=== PATIENT | female | born 1960 | race African-American/Black ===

== ENCOUNTER 2017-07-05 09:00 | Emergency (ER) | payer MEDICARE ==
[2017-07-05] MEDS ORDERED: PROMETHAZINE 12.5 MG in IV NORMAL SALINE 50ML 50 ML IV PRN (09:30)
[2017-07-05] MEDS ORDERED: DICYCLOMINE 20 MG/2 ML AMPUL. IM ONE (09:30)
[2017-07-05] MEDS ORDERED: ONDANSETRON PF 4 MG/2 ML VIAL. IV ONE (09:30)
[2017-07-05] MEDS ORDERED: MORPHINE SULFATE 4 MG/ML DISP.SYRIN. IV/SQ PRN (09:30)
[2017-07-05] MEDS ORDERED: HYDR-971 PO (09:50)
[2017-07-05] MEDS ORDERED: DOXY100C14 PO (09:50)
[2017-07-05] MEDS ORDERED: NAPR-677 PO (09:50)
[2017-07-05] MEDS ORDERED: BENZ100C PO (09:51)
--- NOTE | 2017-07-05 09:54 | ED.ADGEN ---
Past History Past Medical History: CAD, Hypertension, Other Past Surgical History: , Hysterectomy, Oophorectomy, Other Alcohol Use: None Drug Use: None Adult General HPI HPI Patient is a 57 year old female who presents with facial pain and erythema that began one week ago. The patient reports she's also having tenderness to the left aspect of her nose and extending over her left maxillary sinus. The patient reports nasal congestion that was unrelieved with [id number] Flonase. The patient reports clear rhinorrhea. The patient also complains of a congested cough. The patient denies fevers or chills. The patient reports that the soft tissues of the nose and over her maxillary sinus are also tender. The patient reports that she recently had a cardiac catheter at [facility] 2 days ago. The patient reports that she is awaiting a femoropopliteal bypass to be done at [facility]. Review of Systems Review of Systems Constitutional: Denies fever or chills [] Eyes: Denies change in visual acuity, redness, or eye pain [] HENT: The patient reports nasal drainage that is clear but denies a sore throat] Respiratory: The patient reports a congested cough but denies shortness of air.] Cardiovascular: No additional information not addressed in HPI [] GI: Denies abdominal pain, nausea, vomiting, bloody stools or diarrhea [] : Denies dysuria or hematuria [] Musculoskeletal: Denies back pain or joint pain [] Integument: Denies rash or skin lesions [] Neurologic: Denies headache, focal weakness or sensory changes [] Endocrine: Denies polyuria or polydipsia [] Current Medications Current Medications Current Medications Medications (Trade) Dose Ordered Sig/Jaelyn Start Time Stop Time Status Last Admin Dose Admin Dicyclomine HCl (Bentyl) 20 mg 1X ONCE 07/05/17 09:30 07/05/17 09:30 DC Morphine Sulfate (Morphine 4mg Syringe) 4 mg PRN Q15MIN PRN 07/05/17 09:30 07/05/17 09:30 DC Ondansetron HCl (Zofran) 8 mg 1X ONCE 07/05/17 09:30 07/05/17 09:30 DC Promethazine HCl 12.5 mg/Sodium Chloride 50.5 ml @ 101 mls/hr PRN Q6HRS PRN 07/05/17 09:30 07/05/17 09:30 DC Sodium Chloride 1,000 ml @ 1,000 mls/hr 1X ONCE 07/05/17 10:15 07/05/17 10:15 DC Allergies Allergies Allergies Coded Allergies Type Severity Reaction Last Updated Verified Sulfa (Sulfonamide Antibiotics) Allergy Unknown Nausea and Vomiting 07/05/17 Yes acetaminophen Allergy Unknown Nausea and Vomiting 07/05/17 Yes butalbital Allergy Unknown Nausea and Vomiting 07/05/17 Yes caffeine Allergy Unknown Nausea and Vomiting 07/05/17 Yes tramadol Allergy Unknown Nausea and Vomiting 07/05/17 Yes Physical Exam Physical Exam Constitutional: Well developed, well nourished, no acute distress, non-toxic appearance. [] HENT: Normocephalic, atraumatic, bilateral external ears normal, oropharynx moist, no oral exudates, nose normal. Nasal mucosa with clear drainage present, mild nasal mucosal edema, left Neer with tenderness to palpation as well as tenderness over left maxillary sinus and the soft tissues over the maxillary sinus, there is very minimal amount of erythema to the soft tissues in this area. The patient has a scar from an old injury that appears to have been sutured approximately 1/2 cm long on the left side of her nose.[] Eyes: PERRLA, EOMI, conjunctiva normal, no discharge. [] Neck: Normal range of motion, no tenderness, supple, no stridor. [] Cardiovascular:Heart rate regular rhythm, no murmur [] Lungs & Thorax: Bilateral breath sounds clear to auscultation [] Abdomen: Bowel sounds normal, soft, no tenderness, no masses, no pulsatile masses. [] Skin: Warm, dry, no erythema, no rash. [] Back: No tenderness, no CVA tenderness. [] Extremities: No tenderness, no cyanosis, no clubbing, ROM intact, no edema. [] Neurologic: Alert and oriented X 3, normal motor function, normal sensory function, no focal deficits noted. [] Psychologic: Affect normal, judgement normal, mood normal. [] Current Patient Data Vital Signs Vital Signs Date Time Temp Pulse Resp B/P (MAP) Pulse Ox O2 Delivery O2 Flow Rate FiO2 07/05/17 10:00 70 18 150/77 (101) 98 Room Air 07/05/17 09:00 97.7 EKG EKG [] Radiology/Procedures Radiology/Procedures [] Course & Med Decision Making Course & Med Decision Making Pertinent Labs and Imaging studies reviewed. (See chart for details) [] Final Impression Final Impression Facial cellulitis very early Upper respiratory infection[] Problems: Dragon Disclaimer Dragon Disclaimer This electronic medical record was generated, in whole or in part, using a voice recognition dictation system. Departure Disposition: HOME, SELF-CARE Condition: GOOD Patient Instructions: Cellulitis Referrals: ANA DE LEON DO Additional Instructions: Please return to the emergency department for a recheck in 24 hours, or follow up with the primary care physician you have been referred to. Prescriptions doxycyline, ashley snyder HILARY A MD Jul 05, 2017 09:54
[2017-07-05 10:00] VITALS: BP 150/77
[2017-07-05] MEDS ORDERED: IV NORMAL SALINE 1,000ML 1,000 ML IV ONE ×2 (10:15)
[2017-07-05] MEDS ORDERED: IV NORMAL SALINE 500ML 1,000 ML IV ONE (10:15)
== END 2017-07-05 10:05 | disposition home or self-care (01) ==
LOC: ER 09:00
DX: L03.211 Cellulitis of face (principal); J06.9 Acute upper respiratory infection, unspecified; I25.10 Atherosclerotic heart disease of native coronary artery without angina pectoris; I10 Essential (primary) hypertension; Z88.2 Allergy status to sulfonamides; Z88.6 Allergy status to analgesic agent; Z88.8 Allergy status to other drugs, medicaments and biological substances
CPT/HCPCS: 99283; 99285-25

== ENCOUNTER 2017-08-24 11:36 | Emergency (ER) | payer MEDICARE ==
[~2017-08-24] VITALS: Ht 157.5 cm; Wt 50.8 kg
[~2017-08-24 11:36] MED LIST: BENZ100C PO; DOXY100C14 PO; HYDR-971 PO; NAPR-677 PO
[2017-08-24 12:29] LABS: BILIRUBIN,URINE NEG (NEG); CLARITY,URINE CLEAR; COLOR,URINE YELLOW; GLUCOSE,URINE NEG (NEG)
[2017-08-24 12:30] LABS: BACTERIA,URINE 0 /HPF (0-FEW); NITRITE,URINE NEG (NEG); RBC,URINE 0 /HPF (0-2); UROBILINOGEN,URINE 0.2 mg/dL (0.2 mg/dL); WBC,URINE 0 /HPF (0-4)
[2017-08-24] MEDS ORDERED: IBUP400T18 PO (12:39)
--- NOTE | 2017-08-24 12:40 | PHYS DOC ---
Past History Past Medical History: CAD, Hypertension, Other Past Surgical History: , Hysterectomy, Oophorectomy, Other Alcohol Use: None Drug Use: None Adult General Chief Complaint Chief Complaint: ABDOMINAL PAIN HPI HPI 57-year-old female presenting to the emergency department today with right lower quadrant abdominal pain. She describes the pain as sharp mild intermittent nonradiating without alleviating factors. She has had a total hysterectomy including her ovaries. She denies fevers chills nausea or vomiting. Review of systems is negative for chest pain shortness of breath fevers chills. Diarrhea constipation. She denies blood in her stools. All other review of systems is negative unless otherwise noted in history of present illness. ED course: 57-year-old female presenting with right lower quadrant abdominal pain. Afebrile with normal heart rate. IV established. Fluids given. Blood work obtained along with CT the abdomen pelvis. On reexamination, the patient's abdomen is nontender to palpation. Negative McBurney's point. Negative Russo sign. The patient was then discharged home in stable condition to follow up with their primary care physician over the next 2-3 days. They were to return if their symptoms worsened or if they were concerned for any reason. Face-to- face discharge instructions and return precautions were given. Patient's questions were answered to their satisfaction. Patient is comfortable plan. Review of Systems Review of Systems SEE ABOVE. Allergies Allergies Allergies Coded Allergies Type Severity Reaction Last Updated Verified Sulfa (Sulfonamide Antibiotics) Allergy Unknown Nausea and Vomiting 07/05/17 Yes acetaminophen Allergy Unknown Nausea and Vomiting 07/05/17 Yes butalbital Allergy Unknown Nausea and Vomiting 07/05/17 Yes caffeine Allergy Unknown Nausea and Vomiting 07/05/17 Yes tramadol Allergy Unknown Nausea and Vomiting 07/05/17 Yes Physical Exam Physical Exam SEE ABOVE Constitutional: Well developed, well nourished, no acute distress, non-toxic appearance. HENT: Normocephalic, atraumatic, bilateral external ears normal, oropharynx moist, no oral exudates, nose normal. [] Eyes: PERRLA, EOMI, conjunctiva normal, no discharge. Neck: Normal range of motion, no tenderness, supple, no stridor. [] Cardiovascular:Heart rate regular rhythm, no murmur Lungs & Thorax: Bilateral breath sounds clear to auscultation [] Abdomen: Soft nontender abdomen without rebound tenderness or guarding present. Negative McBurneys point. Negative Russo sign. No ecchymosis present. Skin: Warm, dry, no erythema, no rash. [] Back: No tenderness, no CVA tenderness. Extremities: No tenderness, no cyanosis, no clubbing, ROM intact, no edema. [] Neurologic: Alert and oriented X 3, normal motor function, normal sensory function, no focal deficits noted. [] Psychologic: Affect normal, judgement normal, mood normal. [] Current Patient Data Lab Results Laboratory Tests Test 08/24/17 12:10 Urine Collection Type Unknown Urine Color Yellow Urine Clarity Clear Urine pH 6.5 Urine Specific [place] <=1.005 Urine Protein Neg (NEG-TRACE) Urine Glucose (UA) Neg mg/dL (NEG) Urine Ketones (Stick) Neg mg/dL (NEG) Urine Blood Neg (NEG) Urine Nitrite Neg (NEG) Urine Bilirubin Neg (NEG) Urine Urobilinogen Dipstick 0.2 mg/dL (0.2 mg/dL) Urine Leukocyte Esterase Neg (NEG) Urine RBC 0 /HPF (0-2) Urine WBC 0 /HPF (0-4) Urine Squamous Epithelial Cells None /LPF Urine Bacteria 0 /HPF (0-FEW) EKG EKG [] Radiology/Procedures Radiology/Procedures [] Course & Med Decision Making Course & Med Decision Making Pertinent Labs and Imaging studies reviewed. (See chart for details) [] Dragon Disclaimer Dragon Disclaimer This electronic medical record was generated, in whole or in part, using a voice recognition dictation system. Departure Departure: Impression: Primary Impression: RLQ abdominal pain Disposition: HOME, SELF-CARE Condition: STABLE Referrals: PCP,NO (PCP) Patient Instructions: Abdominal Pain Additional Instructions: Thank you for allowing us to participate in your care today. Followup with your primary care physician in 3 days if your symptoms do not improve. Call your Primary Doctor tomorrow and inform them of your visit today. If you do not have a primary care provider you can ask for a list of our primary care providers. Return to the emergency department you have any new or concerning findings. This should be evaluated by the primary care physician and any necessary consulting services for continued management within a few days after discharge. Return to emergency room if you have any new or concerning symptoms including but not limited to fever, chills, nausea, vomiting, intractable pain, any new rashes, chest pain, shortness of air, uncontrolled bleeding, difficulty breathing, and/or vision loss. Scripts Ibuprofen (IBUPROFEN) 400 Mg Tablet 1 TAB PO PRN Q8HRS Y for PAIN, #20 TAB Prov: AMY PATTERSON MD 08/24/17 AMY PATTERSON MD Aug 24, 2017 12:40
[2017-08-24 12:42] LABS: BASO # 0.1 x10^3/uL (0.0-0.2); BASO % 1 % (0-3); EOS # 0.1 x10^3/uL (0.0-0.7); EOS % 1 % (0-3); HEMATOCRIT 37.8 % (36.0-47.0); HEMOGLOBIN 13.2 g/dL (12.0-15.5); LYMPH # 1.9 x10^3/uL (1.0-4.8); LYMPH % 33 % (24-48); MEAN CORPUSCULAR HEMOGLOBIN 33 pg (25-35); MEAN CORPUSCULAR HGB CONC 35 g/dL (31-37); MEAN CORPUSCULAR VOLUME 94 fL (79-100); MONO # 0.4 x10^3/uL (0.0-1.1); MONO % 7 % (0-9); NEUT # 3.2 x10^3uL (1.8-7.7); NEUT % 58 % (31-73); PLATELET COUNT 225 x10^3/uL (140-400); RED BLOOD COUNT 4.03 x10^6/uL (3.50-5.40); RED CELL DISTRIBUTION WIDTH 13.7 % (11.5-14.5); WHITE BLOOD COUNT 5.6 x10^3/uL (4.0-11.0)
[2017-08-24 12:55] LABS: CREATININE 0.9 mg/dL (0.6-1.0); DIRECT BILIRUBIN 0.1 mg/dL (0.0-0.2); GFR 78.4; POTASSIUM 4.5 mmol/L (3.5-5.1); TOTAL BILIRUBIN 0.5 mg/dL (0.2-1.0); TOTAL PROTEIN 8.2 g/dL (6.4-8.2)
[2017-08-24] MEDS ORDERED: IOHEXOL 300 MG/ML 75 ML VIAL. IV ONE (13:00)
--- NOTE | 2017-08-24 13:17 | RAD ---
EXAM: CT abdomen/pelvis with contrast. HISTORY: Right lower quadrant pain. TECHNIQUE: Computed tomography of the abdomen and pelvis was performed after the intravenous administration of 75 mL Omnipaque 300. COMPARISON: None. FINDINGS: Lung windows through the visualized portions of the bases reveal no abnormality. Bone windows reveal no suspicious lesions. A 6 mm hypoattenuating focus in hepatic segment 8 is likely a benign cyst or hemangioma in the absence of known malignancy. The pancreas, adrenal glands, gallbladder, spleen and kidneys are unremarkable. The appendix is not inflamed. There is no obstruction. There is stool throughout the colon. The uterus is surgically absent. There are diffuse atherosclerotic calcifications. IMPRESSION: 1. No cause for acute pain is identified. Correlate for mild constipation. *One or more of the following individualized dose reduction techniques were utilized for this examination: 1. Automated exposure control. 2. Adjustment of the mA and/or kV according to patient size. 3. Use of iterative reconstruction technique.
[2017-08-24 13:30] VITALS: BP 157/63
== END 2017-08-24 14:09 | disposition home or self-care (01) ==
LOC: ER 11:36
DX: R10.31 Right lower quadrant pain (principal); I10 Essential (primary) hypertension; I25.10 Atherosclerotic heart disease of native coronary artery without angina pectoris; Z88.2 Allergy status to sulfonamides; Z88.6 Allergy status to analgesic agent; Z88.8 Allergy status to other drugs, medicaments and biological substances
CPT/HCPCS: 36415; 74177; 80048; 80076; 81001; 83690; 85025; 99285; Q9967

== ENCOUNTER → 2018-03-13 | Outpatient (CLI) | payer MEDICARE ==
[~2018-03-13] MED LIST changes: +IBUP400T18 PO
--- NOTE | 2018-03-22 11:43 | RAD ---
DATE: 03/13/2018 EXAM: MAMMO JOSE SCREENING BILATERAL HISTORY: Routine screening COMPARISON: 10/24/2016 This study was interpreted with the benefit of Computerized Aided Detection (CAD). The breast parenchyma is heterogeneously dense, which could reduce sensitivity of mammography. Breast parenchyma level C. FINDINGS: 2-D and 3-D tomosynthesis imaging was performed in CC and MLO projections. The fibroglandular tissues are heterogeneously dense in a somewhat nodular pattern. No spiculated mass or architectural distortion is seen. Benign type calcifications are evident. No suspicious microcalcifications have developed. IMPRESSION: There is no mammographic evidence of malignancy in either breast. BI-RADS CATEGORY: 2 BENIGN FINDING(S) RECOMMENDED FOLLOW-UP: 12M 12 MONTH FOLLOW-UP PQRS compliance statement: Patient information was entered into a reminder system with a target due date for the next mammogram. Mammography is a sensitive method for finding small breast cancers, but it does not detect them all and is not a substitute for careful clinical examination. A negative mammogram does not negate a clinically suspicious finding and should not result in delay in biopsying a clinically suspicious abnormality. "Our facility is accredited by the [employer] Mammography Program."
== END | disposition home or self-care (01) ==
LOC: MAMMO 11:02
PROVIDERS: ATTEND Family Medicine
DX: Z12.31 Encounter for screening mammogram for malignant neoplasm of breast (principal)
CPT/HCPCS: 77063; 77067

== ENCOUNTER → 2018-03-19 | Outpatient (CLI) | payer MEDICARE ==
--- NOTE | 2018-03-19 14:58 | CARD ---
MR#: [id number] Date of Study: 03/19/2018 Ordering Physician: TAYE ESPINO, Referring Physician: TAYE ESPINO, Tech: Belen Lomeli CHANTAL APPROVED REPORT EXAM: Two-dimensional and M-mode echocardiogram with Doppler and color Doppler. Other Information Quality : Good INDICATION Hypertension/HCVD 2D DIMENSIONS RVDd2.2 (2.9-3.5cm)Left Atrium(2D)2.9 (1.6-4.0cm) IVSd1.1 (0.7-1.1cm)Aortic Root(2D)2.5 (2.0-3.7cm) LVDd4.2 (3.9-5.9cm)LVOT Diameter1.8 (1.8-2.4cm) PWd0.9 (0.7-1.1cm)LVDs2.1 (2.5-4.0cm) FS (%) 30.6 %SV64.1 ml LVEF(%)60.0 (>50%) Aortic Valve AoV Peak Osmin.150.7cm/sAoV VTI28.9cm AO Peak GR.9.1mmHgLVOT Peak Osmin.123.9cm/s LVOT VTI 28.29cmAO Mean GR.4mmHg IGNACIO (VMAX)2.66bz6HVI (VTI)2.62cm2 AI P 1/2 Juwo881lv Mitral Valve MV E Jhqfgpdc09.8cm/sMV DECEL [id number] MV A Xiatbbjw10.4cm/sE/A Ratio1.3 Tricuspid Valve TR P. Ntpgsdhp336bf/sRAP AXYDPUFG0jzHz TR Peak Gr.37meObNDHD02viTx Pulmonary Vein S1 Scsxhuhp54.1cm/sD2 Cdviwznr28.9cm/s LEFT VENTRICLE The left ventricle is normal size. There is normal left ventricular wall thickness. The left ventricu lar systolic function is normal. The Ejection Fraction is 55-60%. There is normal LV segmental wall m otion. RIGHT VENTRICLE The right ventricle is normal size. The right ventricular systolic function is normal. ATRIA The left atrium size is normal. The right atrium size is normal. The interatrial septum is intact wit h no evidence for an atrial septal defect or patent foramen ovale as noted on 2-D or Doppler imaging. AORTIC VALVE The aortic valve is calcified but opens well. Doppler and Color Flow revealed mild to moderate aortic regurgitation. There is no significant aortic valvular stenosis. MITRAL VALVE The mitral valve is normal in structure and function. There is no evidence of mitral valve prolapse. There is no mitral valve stenosis. Doppler and Color-flow revealed mild mitral regurgitation. TRICUSPID VALVE The tricuspid valve is normal in structure and function. Doppler and Color Flow revealed trace tricus pid regurgitation. The PA pressure was estimated at 18 mmHg. There is no tricuspid valve stenosis. PULMONIC VALVE The pulmonary valve is normal in structure and function. Doppler and Color Flow revealed mild to mode rate pulmonic valvular regurgitation. There is no pulmonic valvular stenosis. GREAT VESSELS The aortic root is normal in size. The ascending aorta is normal in size. The IVC is normal in size a nd collapses >50% with inspiration. PERICARDIAL EFFUSION There is no evidence of significant pericardial effusion. Critical Notification Critical Value: No <Conclusion> The left ventricular systolic function is normal. The Ejection Fraction is 55-60%. There is normal LV segmental wall motion. Mild to moderate aortic regurgitation. Mild mitral regurgitation. Trace tricuspid regurgitation. The PA pressure was estimated at 18 mmHg. There is no evidence of significant pericardial effusion. Signed by : Elmer Hammer, Electronically Approved : 03/19/2018 14:56:55
== END | disposition home or self-care (01) ==
LOC: ECHO 13:55
PROVIDERS: ATTEND Internal Medicine Cardiovascular Disease
DX: I10 Essential (primary) hypertension (principal); I08.0 Rheumatic disorders of both mitral and aortic valves
CPT/HCPCS: 93306

== ENCOUNTER → 2018-06-21 | Outpatient (CLI) | payer MEDICARE ==
[~2018-06-21] MED LIST changes: +IOHEXOL 240 MG/ML 50ML VIAL. ONE
[2018-06-21] MEDS: IOHEXOL 300 MG/ML 75 ML VIAL. IV ONE (10:02)
--- NOTE | 2018-06-21 12:47 | RAD ---
EXAM: Abdomen and pelvis CT with intravenous contrast. HISTORY: Right lower quadrant pain. TECHNIQUE: Computed tomographic images of the abdomen and pelvis were obtained following the administration of 75 cc Omnipaque 300 intravenous contrast. Multiplanar reformatting was performed. *One or more of the following individualized dose reduction techniques were utilized for this examination: 1. Automated exposure control. 2. Adjustment of the mA and/or kV according to patient size. 3. Use of iterative reconstruction technique. COMPARISON: 08/24/2017. FINDINGS: Evaluation of the lower thorax is unremarkable. There hypodense lesions within the liver measuring 7 mm within the lateral right hepatic lobe and 3 mm within the left hepatic lobe. These are too small to characterize. There is slight fatty infiltration of the liver along the falciform ligament. The gallbladder, pancreas, spleen, adrenal glands and kidneys are unremarkable. There is no appendicitis. There is no bowel obstruction. There is moderate colonic stool. The bladder is unremarkable. The uterus is surgically absent. There is no lymphadenopathy. There is calcified atherosclerotic plaque involving the aorta and main abdominal aortic branch vessel origins. This results in suspected stenosis primarily at the origins of the renal arteries. There is grade 1 anterolisthesis of L5 on S1. No suspicious osseous lesion is seen. IMPRESSION: 1. No acute abdominal or pelvic finding. Specifically, there is no evidence of appendicitis. 2. Stable small hypodense lesions within the liver. In the absence of known malignancy, these are likely cysts or hemangiomas. Electronically signed by: Neris Tolliver MD (06/21/2018 12:43 PM) [id number]
== END | disposition home or self-care (01) ==
LOC: CT 08:10
PROVIDERS: ATTEND Family Medicine
DX: K76.89 Other specified diseases of liver (principal); I70.0 Atherosclerosis of aorta; M43.17 Spondylolisthesis, lumbosacral region; I25.10 Atherosclerotic heart disease of native coronary artery without angina pectoris; I10 Essential (primary) hypertension; Z88.2 Allergy status to sulfonamides; Z88.6 Allergy status to analgesic agent; Z88.8 Allergy status to other drugs, medicaments and biological substances
CPT/HCPCS: 74177; Q9966; Q9967

== ENCOUNTER → 2018-08-13 | Day surgery (SDC) | payer MEDICARE ==
[~2018-08-13] MED LIST changes: +ALBUTEROL SULFATE 2.5 MG/3 ML NEBU. NEB PRN; +ASPI325T8 PO; +ATROPINE 0.5 MG/5 ML DISP.SYRIN. IV PRN; -IOHEXOL 240 MG/ML 50ML VIAL. ONE; +IV RINGERS SOLUTION,LACTATED 1,000 ML IV SCH; +LIDOCAINE 2% PF Vial for OR 5 ML VIAL. ONE; +LIPITOR80 MG PO; +LISI1TAB3 PO; +NALOXONE 0.4 MG/ML VIAL. IV PRN; +NAPR-683 PO; +ONDANSETRON PF 4 MG/2 ML VIAL. IV PRN; +PHENYLEPHRINE 10 MG/ML VIAL. IV ONE; +POTA10TA10 PO; +PROPOFOL 40 ML IV ONE
[2018-08-13 09:00] VITALS: BP 144/75
== END | disposition home or self-care (01) ==
LOC: SURG 06:58
PROVIDERS: ATTEND Internal Medicine Gastroenterology
DX: R10.31 Right lower quadrant pain (principal); K59.00 Constipation, unspecified; F41.9 Anxiety disorder, unspecified; E78.5 Hyperlipidemia, unspecified; I11.9 Hypertensive heart disease without heart failure; Z90.710 Acquired absence of both cervix and uterus; Z95.5 Presence of coronary angioplasty implant and graft; Z98.890 Other specified postprocedural states; Z82.49 Family history of ischemic heart disease and other diseases of the circulatory system; F17.210 Nicotine dependence, cigarettes, uncomplicated; Z88.2 Allergy status to sulfonamides; Z88.6 Allergy status to analgesic agent; Z88.8 Allergy status to other drugs, medicaments and biological substances; Z79.899 Other long term (current) drug therapy; Z79.82 Long term (current) use of aspirin
CPT/HCPCS: 45378; J2704; J7120; J2001

== ENCOUNTER 2018-11-21 08:55 | Emergency (ER) | payer MEDICARE ==
[~2018-11-21] VITALS: Ht 157.5 cm; Wt 55.6 kg
[~2018-11-21 08:55] MED LIST changes: -ALBUTEROL SULFATE 2.5 MG/3 ML NEBU. NEB PRN; -ATROPINE 0.5 MG/5 ML DISP.SYRIN. IV PRN; +HYDR-3165 PO; -HYDR-971 PO; -IV RINGERS SOLUTION,LACTATED 1,000 ML IV SCH; -LIDOCAINE 2% PF Vial for OR 5 ML VIAL. ONE; -NALOXONE 0.4 MG/ML VIAL. IV PRN; -ONDANSETRON PF 4 MG/2 ML VIAL. IV PRN; -PHENYLEPHRINE 10 MG/ML VIAL. IV ONE; -PROPOFOL 40 ML IV ONE
[2018-11-21 09:05] VITALS: BP 187/75
[2018-11-21] MEDS ORDERED: KETOROLAC 15 MG/ML VIAL. IM ONE (09:15)
--- NOTE | 2018-11-21 09:35 | PHYS DOC ---
Past History Past Medical History: CAD, Hypertension, Other Past Surgical History: , Hysterectomy, Oophorectomy, Other Alcohol Use: None Drug Use: None Adult General Chief Complaint Chief Complaint: SHOULDER INJURY HPI HPI Patient is a 58-year-old female who presents with right shoulder pain. This started 3 weeks ago after a fall, slipping on ice and snow. This became much worse 2 days ago when she slipped again landing on that same right shoulder. Patient is right-hand dominant. Increased pain with any movement. No numbness or tingling. No paresthesias. No chest pain or palpitations nor worsening with exertion. Patient has taken no home pain medication. Reports the pain is severe. [] Review of Systems Review of Systems Constitutional: Denies fever or chills [] Eyes: Denies change in visual acuity, redness, or eye pain [] HENT: Denies nasal congestion or sore throat [] Respiratory: Denies cough or shortness of breath [] Cardiovascular: No additional information not addressed in HPI [] GI: Denies abdominal pain, nausea, vomiting, bloody stools or diarrhea [] : Denies dysuria or hematuria [] Musculoskeletal: Denies back pain or joint pain [] Integument: Denies rash or skin lesions [] Neurologic: Denies headache, focal weakness or sensory changes [] Endocrine: Denies polyuria or polydipsia [] All other systems were reviewed and found to be within normal limits, except as documented in this note. Current Medications Current Medications Current Medications Medications (Trade) Dose Ordered Sig/[facility] Start Time Stop Time Status Last Admin Dose Admin Ketorolac Tromethamine (Toradol 15mg Vial) 15 mg 1X ONCE 11/21/18 09:15 11/21/18 09:16 UNV Allergies Allergies Allergies Coded Allergies Type Severity Reaction Last Updated Verified Sulfa (Sulfonamide Antibiotics) Allergy Unknown Nausea and Vomiting 07/05/17 Yes acetaminophen Allergy Unknown Nausea and Vomiting 07/05/17 Yes butalbital Allergy Unknown Nausea and Vomiting 07/05/17 Yes caffeine Allergy Unknown Nausea and Vomiting 07/05/17 Yes tramadol Allergy Unknown Nausea and Vomiting 07/05/17 Yes Physical Exam Physical Exam Constitutional: Well developed, well nourished, mild to moderate discomfort, non -toxic appearance. [] HENT: Normocephalic, atraumatic, bilateral external ears normal, oropharynx moist, no oral exudates, nose normal. [] Eyes: PERRLA, EOMI, conjunctiva normal, no discharge. [] Neck: Normal range of motion, no tenderness, supple, no stridor. [] Cardiovascular:Heart rate regular rhythm, no murmur [] Lungs & Thorax: Bilateral breath sounds clear to auscultation [] Abdomen: Bowel sounds normal, soft, no tenderness, no masses, no pulsatile masses, pelvis is stable and 3 planes. [] Skin: Warm, dry, no erythema, no rash. [] Back: No tenderness, no CVA tenderness. [] Extremities: Tenderness diffusely around the right shoulder. There is no crepitus. Limited range of motion in the right shoulder secondary to pain. Elbow is normal with full active range of motion and no tenderness, patient is distal neurovascularly intact, no cyanosis, no clubbing, ROM intact in the other 3 extremities, no edema. [] Neurologic: Alert and oriented X 3, normal motor function, normal sensory function, no focal deficits noted. [] Psychologic: Affect normal, judgement normal, mood normal. [] EKG EKG [] Radiology/Procedures Radiology/Procedures TECHNIQUE: 3 views of the right shoulder COMPARISON:None FINDINGS/ impression:No acute fracture or dislocation. Visualized right lung is clear. No significant arthritic process. Electronically signed by: Yovani Dang DO (11/21/2018 9:53 AM) [id number] [] Course & Med Decision Making Course & Med Decision Making Pertinent Labs and Imaging studies reviewed. (See chart for details) Medical decision making: There is no evidence of a fracture or dislocation.[] Dragon Disclaimer Dragon Disclaimer This electronic medical record was generated, in whole or in part, using a voice recognition dictation system. Departure Departure: Impression: Primary Impression: Right shoulder pain Disposition: 01 HOME, SELF-CARE Condition: IMPROVED Referrals: KEN KRAUSE MD (PCP) Follow-up in 2 days Patient Instructions: Arm Sling Use-Brief, Shoulder Exercises, Generic, SportsMed, Shoulder Pain Additional Instructions: Follow-up with your regular doctor in 2 days. Wear the sling while awake. Return to the ER if worsening pain, weakness, or any other concerns. Problem Qualifiers Primary Impression: Right shoulder pain Chronicity: acute Qualified Codes: M25.511 - Pain in right shoulder FEDE MIRZA DO Nov 21, 2018 09:35
--- NOTE | 2018-11-21 09:56 | RAD ---
Indication:rt shoulder pain s/p fall TECHNIQUE: 3 views of the right shoulder COMPARISON:None FINDINGS/ impression:No acute fracture or dislocation. Visualized right lung is clear. No significant arthritic process. Electronically signed by: Yovani Dang DO (11/21/2018 9:53 AM) [id number]
== END 2018-11-21 10:20 | disposition home or self-care (01) ==
LOC: ER 08:55
DX: M25.511 Pain in right shoulder (principal); G89.11 Acute pain due to trauma; I25.10 Atherosclerotic heart disease of native coronary artery without angina pectoris; I10 Essential (primary) hypertension; Z88.2 Allergy status to sulfonamides; Z88.6 Allergy status to analgesic agent; Z88.8 Allergy status to other drugs, medicaments and biological substances; W01.0XXA Fall on same level from slipping, tripping and stumbling without subsequent striking against object, initial encounter; Y93.89 Activity, other specified; Y92.89 Other specified places as the place of occurrence of the external cause; Y99.8 Other external cause status
CPT/HCPCS: 73030; 96372; 99283; J1885

== ENCOUNTER → 2019-01-13 | Outpatient (CLI) | payer MEDICARE ==
--- NOTE | 2019-01-13 13:38 | RAD ---
Bilateral lower extremity arterial duplex ultrasound 01/13/2019 INDICATION: Stricture of artery. Cold feet Discussion: Ultrasound evaluation of the major arteries of the bilateral lower extremities was performed including color Doppler imaging spectral analysis. No comparison studies available for review. FINDINGS: Right lower extremity: Diffuse aphthous chronic vascular disease is noted. Mild narrowing appears to be present at the right proximal SFA. Mild blunting of distal waveforms is seen. The dense plaquing or stent is seen in the distal right superficial femoral artery. Tibial vessels are grossly patent by ultrasound. Left lower extremity: Left common femoral artery appears to be grossly patent. There is occlusion of the proximal left superficial femoral artery stent. Reconstitution of the distal SFA appears to be present. There is however weak monophasic flow noted through the remainder of the left lower extremity. IMPRESSION: 1. 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 Diffuse atherosclerotic vascular disease. No evidence of high-grade stenosis on the right is identified. Electronically signed by: Barrera Cameron MD (01/13/2019 1:35 PM) [id number]
== END | disposition home or self-care (01) ==
LOC: US 10:52
PROVIDERS: ATTEND Family Medicine
DX: I70.293 Other atherosclerosis of native arteries of extremities, bilateral legs (principal); I77.1 Stricture of artery
CPT/HCPCS: 93923